=== PATIENT | male | born 1990 | race Caucasian/White ===

== ENCOUNTER → 2017-06-24 | Outpatient (CLI) | payer MEDICAID | LOC: CARD 11:38 | PROVIDERS: ATTEND Internal Medicine Interventional Cardiology | DX: I42.9 Cardiomyopathy, unspecified (principal); I25.2 Old myocardial infarction; I10 Essential (primary) hypertension; Z72.0 Tobacco use | CPT/HCPCS: 93306 ==

== ENCOUNTER → 2018-08-31 | Outpatient (CLI) | payer MEDICAID | LOC: LAB 16:35 | PROVIDERS: ATTEND Urology | DX: Z30.8 Encounter for other contraceptive management (principal) | CPT/HCPCS: 89321 ==

== ENCOUNTER 2020-07-26 10:21 | Emergency (ER) | payer MEDICAID ==
[~2020-07-26] VITALS: Ht 180 cm; Wt 88.0 kg
[2020-07-26 11:20] VITALS: BP 137/98
--- NOTE | 2020-07-26 12:16 | ED Lower Extremity ---
General Chief Complaint: Lower Extremity Stated Complaint: R FOOT PAIN Nursing Triage Note: PT ARRIVES TO ER TODAY WITH C/O RIGHT FOOT PAIN. AROUND 0800 TODAY HE STEPPED OFF OF A CURB AND ROLLED HIS ANKLE. Nursing Sepsis Screen: No Definite Risk Source: patient Exam Limitations: no limitations History of Present Illness Date Seen by Provider: Jul 26, 2020 Time Seen by Provider: 12:14 Initial Comments Pain and swelling to the dorsal aspect of the proximal fourth and fifth metatarsals of the right foot after rolling his foot after stepping off a curb this morning. Onset: this morning Severity: moderate Pain/Injury Location: right foot Method of Injury: twisted Modifying Factors: Worse With Movement Allergies and Home Medications Patient Home Medication List Home Medication List Reviewed: Yes Review of Systems Constitutional: see HPI EENTM: see HPI Respiratory: no symptoms reported Cardiovascular: no symptoms reported Genitourinary: no symptoms reported Musculoskeletal: see HPI Skin: no symptoms reported Psychiatric/Neurological: No Symptoms Reported Past Fogrfed-Thbcih-Qlabro Hx Patient Social History Recent Foreign Travel: No Contact w/Someone Who Travel: No Recent Infectious Disease Expo: No Physical Exam Vital Signs Vital Signs - First Documented 07/26/20 11:20 Temp 36.7 Pulse 73 Resp 20 B/P (MAP) 137/98 (111) Pulse Ox 97 Capillary Refill : Less Than 3 Seconds Height, Weight, BMI Height: '" Weight: lbs. oz. kg; 27.00 BMI Method: General Appearance: WD/WN, no apparent distress HEENT: PERRL/EOMI, normal ENT inspection Respiratory: no respiratory distress, no accessory muscle use Hips: bilateral hip non-tender, bilateral hip normal inspection, bilateral hip normal range of motion Legs: bilateral leg non-tender, bilateral leg normal inspection, bilateral leg normal range of motion Knees: bilateral knee non-tender, bilateral knee normal inspection, bilateral knee normal range of motion Ankles: bilateral ankle non-tender, bilateral ankle normal inspection, bilateral ankle normal range of motion Feet: right foot other (tenderness to palpation over the dorsal lateral aspect of the foot over the proximal fourth and fifth metatarsals with minimal swelling but no obvious deformity. There is absolutely no tenderness to palpation over the distal fibula.) Neurologic/Psychiatric: alert, normal mood/affect, oriented x 3 Progress/Results/Core Measures Results/Orders My Orders Orders - CARO DENNEY APRN Foot, Right, 3 View (07/26/20 11:41) Vital Signs/I&O 07/26/20 11:20 Temp 36.7 Pulse 73 Resp 20 B/P (MAP) 137/98 (111) Pulse Ox 97 Blood Pressure Mean: 111 Departure Impression Primary Impression: Sprain or strain of foot Disposition: HOME, SELF-CARE Condition: Stable Departure-Patient Inst. Decision time for Depature: 12:21 Referrals: NO,LOCAL PHYSICIAN (PCP/Family) Primary Care Physician Patient Instructions: Foot Sprain (DC) Add. Discharge Instructions: 1. Wear the [place] wrap for the next 2-3 days 2. Crutches as needed for pain with walking. When her able to ambulate or walk without difficulty then you can stop using the crutches. Tylenol and ibuprofen for pain control. All discharge instructions reviewed with patient and/or family. Voiced understanding. Work/School Note: Work Release Form Date Seen in the Emergency Department: Jul 26, 2020 Return to Work: Jul 28, 2020 CARO DENNEY APRN Jul 26, 2020 12:16
--- NOTE | 2020-07-26 12:26 | Diagnostic Imaging Report ---
HISTORY: Trauma to the right foot. Pain in the fifth metatarsal tuberosity. TECHNIQUE: Three views of the right foot. COMPARISON: None. FINDINGS: No acute fracture or dislocation is seen in the right foot. Alignment appears normal. Joint spaces are preserved. IMPRESSION: 1. No acute osseous abnormality is seen in the right foot. Dictated by: Dictated on workstation # [id number]
== END 2020-07-26 12:30 | disposition home or self-care (01) ==
LOC: EDUNIT# 10:21 → ER 10:23
DX: S93.621A Sprain of tarsometatarsal ligament of right foot, initial encounter (principal); X50.1XXA Overexertion from prolonged static or awkward postures, initial encounter
CPT/HCPCS: 73630